=== PATIENT | female | born 1975 | race Caucasian/White ===

== ENCOUNTER → 2017-01-21 | Outpatient (CLI) | payer OTHER ==
[2017-01-21 13:11] LABS: BLOOD UREA NITROGEN 17 mg/dl (7-18); BUN/CREATININE RATIO 17.8 (10-20); CALCIUM 8.7 mg/dl (8.5-10.1); CARBON DIOXIDE 25 mmol/L (21-32); CHLORIDE 111 mmol/L (98-107); CREATININE 0.94 mg/dl (0.60-1.20); GLUCOSE 86 mg/dl (70-99); POTASSIUM 4.6 mmol/L (3.5-5.1); SODIUM 142 mmol/L (136-145)
[2017-01-21 13:21] LABS: CHOLESTEROL 179 mg/dl (0-200); CHOLESTEROL/HDL RATIO 2.8; HDL CHOLESTEROL 64 mg/dl; LDL CHOLESTEROL CALCULATED 105 mg/dl; TRIGLYCERIDES 50 mg/dl (0-150); VERY LOW DENSITY LIPOPROT CALC 10 mg/dl
== END | disposition home or self-care (01) ==
LOC: MERGE 08:36 → C.LABPVFM 08:36
PROVIDERS: ATTEND Family Medicine
DX: F41.9 Anxiety disorder, unspecified (principal); Z13.29 Encounter for screening for other suspected endocrine disorder; Z13.1 Encounter for screening for diabetes mellitus; Z13.220 Encounter for screening for lipoid disorders